=== PATIENT | female | born 1975 | race Caucasian/White ===

== ENCOUNTER 2023-08-18 00:48 | Inpatient (IN) | payer MEDICARE, MEDICAID, SELFPAY ==
[2023-08-18 01:00] VITALS: BP 163/116; PULSE 106; RESP 20; O2SAT 94
[2023-08-18 01:10] VITALS: BMI 27.3
--- NOTE | 2023-08-18 01:32 | PC.NURSE ---
Pt direct admit from [facility] where she presented to the ER with c/o abnormal vaginal discharge and vaginal soreness that she had noticed earlier in the day. She also c/o dysuria and increased urinary frequency. Pt states that she is to a private practice physician and her visit to the ER was completely useless. Pt presents to [facility] via EMS at approximately 0043 and is verbally aggressive w/staff. Pt taken to her room and dressed out. Admission assessment completed w/difficulty d/t pt not wanting to answer questions and believing the [facility] is after her. Pt is currently resting in bed.
[2023-08-18 06:00] VITALS: BP 176/101; PULSE 109; RESP 18; O2SAT 97
--- NOTE | 2023-08-18 07:17 | W.PM.NPUH&PS ---
Providers/Chief Complaint Admitting Physician: Celestine Abdi MD HPI [facility] History of Present Illness Elidia Jameson is a 47 year old female who presented to an outside hospital reporting some physical complaints. She discharged and returned shortly having reportedly missed the bus. When she came back and she was requesting food and having some other complaints. Things escalated and led to her receiving medication and being held by the determination of the physician there in collaboration with her guardian. She presents with a very confusing story and being a very resistant historian. She reported that she has been hospitalized 3 times before and that she has a bad reaction to Prozac. She denies current medication and reported that the problem that led her to the hospital was some and moved in with her and is controlling things. Some of her comments seem reasonable while others were quite paranoid. She reported she went to the outside hospital secondary to a vaginal infection. She reports that the reason for the vaginal infection was that people were coming in her house and putting something in her vagina. She reports that other than that concern there is no reason for her to be here and denied any psychiatric elements. She reported that she had been going to [facility] but the man who moved into her house and seem to take over made her start going to [facility]. She reports a history of being on Abilify and some other medications including Lexapro and Prozac. She reports that the medications did not help much and were not necessary. Attempts to gain an understanding of her previous hospitalizations with the problems have been were also difficult. At 1 point she became very resistant to the interview saying that it was hard for her to think and almost bursting into tears. She reports that she smokes about 6 to 7 cigarettes a day but that is because this man keeps all of her 90 and she came to get a pack of cigarettes at a time. She denies alcohol use and reports marijuana rarely. She denied cocaine methamphetamine or opiate use or any other illicit drug use. So she had no explanation for her drug screen that was positive for amphetamines as well as some other substances. She returned to the paranoid explanations for that. She denied any rehabs or drug and alcohol treatment but did report having a DUI in her 20s. She reports that most of this started back in 2014 when she cannot explain what was going on back then. She reports that she is so upset that her eyesight is starting to go. She reports that there are other people that live in her house and they are all terrible people. She reported that all she wanted when she came to the hospital was to get to a homeless snf which was never mentioned anywhere. She did not answer any more historical questions secondary to feeling overwhelmed. We discussed getting an contact with this guardian if we can get collateral information on her medications or past psychiatric treatment. Meds [facility] Home Medications Medication Instructions Recorded Confirmed Last Taken Type Unable to Assess 08/18/23 08/18/23 Unknown History Allergies Allergy/AdvReac Type Severity Reaction Status Date / Time No Known Allergies Allergy Verified 08/18/23 01:07 Mental Status Exam MSE Comments: This is an overweight versus obese white female in hospital scrubs with limited grooming or eye contact. She was lying in bed with psychomotor agitation. Notable scar on her right lower leg from the medial aspect of her ankle up several inches. Somewhat cooperative with exam but then uncooperative with exam and moderate distress. Speech was increased rate normal volume. Mood described as pretty upset, affect congruent, tearful and at times confused. Thought process linear. Thought content: Patient denied suicidal or homicidal ideation, there were no delusions reported but clear paranoia and persecutory delusions noted, she denied auditory or visual sedations but some concerns for perceptual disturbances exist. Attention and concentration were limited and memory was unreliable but none were formally tested. She is alert and oriented to person and place. Insight, judgment and impulse control are impaired. Vitals/I&O/Wt Last Vital Signs Pulse 109 H 08/18/23 06:00 Resp 18 08/18/23 06:00 BP 176/101 08/18/23 06:00 Pulse Ox 97 08/18/23 06:00 O2 Del Method Room Air 08/18/23 06:00 Weight last 48 hrs Weight 81.6 kg A&P Assessment and plan (1) Psychotic disorder: (2) Methamphetamine use disorder, severe: Plan This is a 47-year-old white female with some previous history of mental health treatment that is unclear with possible sexually transmitted disease noted at the outside hospital as well as paranoia and some confusion with limited ability to function as an accurate historian transferred to the hospital reportedly with a guardian supporting the transfer. 1. Continue current medications. We will identify past successful medications or consider new antipsychotic. 2. Continue every 15 minute checks for safety. 3. Encourage individual, group and any therapy. 4. Encourage sober living treatment after discharge at the highest level of care to which she is willing to commit. 5. Obtain collateral information including from the guardian regarding past treatment and possible current medications. Involuntary Hold Information 96 Hour Hold: 96 Hour Involuntary Admission: No Attestations [facility] Medical Necessity Statement*: Inpatient hospitalization is medically necessary and the clinically appropriate intervention at this time. We will monitor medications and make changes as indicated. She will be in the hospital for over 2 midnights. Likely length of stay 7 to 10 days. Coding Level of Care Code Acute Code for [facility] Fwd Diagnoses Psychotic disorder F29 Methamphetamine use disorder, severe F15.20
--- NOTE | 2023-08-18 13:34 | PC.NURSE ---
Patient has woken up. Patient tearful. Patient willing to go to dayroom to ear her lunch. Shower, drink, and services offered to patient. Will continue to closely monitor.
[2023-08-18 14:00] VITALS: BP 138/97; PULSE 108; RESP 14; TEMP 36.9; O2SAT 96
[2023-08-18 20:17] VITALS: BP 174/112; PULSE 104; RESP 18; TEMP 36.9; O2SAT 97
--- NOTE | 2023-08-19 05:01 | PC.NURSE ---
Pt sitting on edge of bed anxious and tearful stating she doesn't understand why she is here. When this nurse attempted to talk to patient she just covered herself up and conversation was halted. This nurse offered the patient medication for anxiety, however pt refused treatment. Behavior monitoring continues.
[2023-08-19 06:00] VITALS: BP 135/79; PULSE 87; RESP 16; TEMP 36.2; O2SAT 95
--- NOTE | 2023-08-19 07:49 | W.PM.NPUPNS ---
Subjective NPU Subjective: Patient presented today continuing to be a fairly poor historian and not giving much information that was useful. We discussed us trying to find out some collateral information from her guardian to figure out where things are or have been as far as medications. She brought up 1 medication which she had reported yesterday was horrible and causes her problems so her position as a historian is quite questionable. Mental Status Exam MSE Comments: This is an overweight versus obese white female in hospital scrubs with limited grooming or eye contact. She was lying in bed with psychomotor agitation. Notable scar on her right lower leg from the medial aspect of her ankle up several inches. Somewhat cooperative with exam but then uncooperative with exam and moderate distress. Speech was increased rate normal volume. Mood described as pretty upset, affect congruent, tearful and at times confused. Thought process linear. Thought content: Patient denied suicidal or homicidal ideation, there were no delusions reported but clear paranoia and persecutory delusions noted, she denied auditory or visual sedations but some concerns for perceptual disturbances exist. Attention and concentration were limited and memory was unreliable but none were formally tested. She is alert and oriented to person and place. Insight, judgment and impulse control are impaired. Vitals/I&O/Wt Last Vital Signs Temp 97.2 F L 08/19/23 06:00 Pulse 87 08/19/23 06:00 Resp 16 08/19/23 06:00 BP 135/79 08/19/23 06:00 Pulse Ox 95 08/19/23 06:00 O2 Del Method Room Air 08/19/23 06:00 Weight last 48 hrs Weight 78.925 kg Weight 78.925 kg Weight 81.6 kg A&P Assessment and plan (1) Psychotic disorder: (2) Methamphetamine use disorder, severe: Plan This is a 47-year-old white female with some previous history of mental health treatment that is unclear with possible sexually transmitted disease noted at the outside hospital as well as paranoia and some confusion with limited ability to function as an accurate historian transferred to the hospital reportedly with a guardian supporting the transfer. 1. Continue current medications. We will identify past successful medications or consider new antipsychotic. 2. Continue every 15 minute checks for safety. 3. Encourage individual, group and any therapy. 4. Encourage sober living treatment after discharge at the highest level of care to which she is willing to commit. 5. Obtain collateral information including from the guardian regarding past treatment and possible current medications. Involuntary Hold Information 96 Hour Hold: 96 Hour Involuntary Admission: No Attestations N[facility] Medical Necessity Statement*: Inpatient hospitalization is medically necessary and the clinically appropriate intervention at this time. We will monitor medications and make changes as indicated. Likely length of stay 7 to 10 days. Coding Level of Care Code Acute Code for [facility] Diagnoses Psychotic disorder F29 Methamphetamine use disorder, severe F15.20
[2023-08-19 14:00] VITALS: BP 133/81; PULSE 86; RESP 14; TEMP 36.8; O2SAT 94
[2023-08-19 20:26] VITALS: BP 158/96; PULSE 84; RESP 18; O2SAT 93
[2023-08-20 06:00] VITALS: BP 137/85; PULSE 98; RESP 16; O2SAT 95
--- NOTE | 2023-08-20 11:21 | P.NPUPN_ITS ---
Subjective NPU Subjective: Patient presented today reporting that she is feeling better but not functioning better per staff reports and direct observation. Today she was focused on the fact that the guardianship paperwork we have is illegal or not accurate and that she does not have a guardian. She would not discuss other issues and really focused on that reality. We discussed that we had the documentation and it appears consistent with how the paperwork should look. She demanded that we had reviewed and suggested that we were holding her illegally because it is not valid. Mental Status Exam MSE Comments: This is an overweight versus obese white female in hospital scrubs with limited grooming or eye contact. She was lying in bed with psychomotor agitation. Notable scar on her right lower leg from the medial aspect of her ankle up several inches. Somewhat cooperative with exam but then uncooperative with exam and moderate distress. Speech was increased rate normal volume. Mood described as frustrated, affect congruent. Thought process linear. Thought content: Patient denied suicidal or homicidal ideation, there were no delusions reported but clear paranoia and persecutory delusions noted, she denied auditory or visual sedations but some concerns for perceptual disturbances exist. Attention and concentration were limited and memory was unreliable but none were formally tested. She is alert and oriented to person and place. Insight, judgment and impulse control are impaired. Vitals/I&O/Wt Last Vital Signs Temp 98.2 F 08/19/23 14:00 Pulse 98 08/20/23 06:00 Resp 16 08/20/23 06:00 BP 137/85 08/20/23 06:00 Pulse Ox 95 08/20/23 06:00 O2 Del Method Room Air 08/19/23 06:00 Weight last 48 hrs Weight 78.925 kg Weight 78.925 kg A&P Assessment and plan (1) Psychotic disorder: (2) Methamphetamine use disorder, severe: Plan This is a 47-year-old white female with some previous history of mental health treatment that is unclear with possible sexually transmitted disease noted at the outside hospital as well as paranoia and some confusion with limited ability to function as an accurate historian transferred to the hospital reportedly with a guardian supporting the transfer. 1. Continue current medications. We will identify past successful medications or consider new antipsychotic. 2. Continue every 15 minute checks for safety. 3. Encourage individual, group and any therapy. 4. Encourage sober living treatment after discharge at the highest level of car e to which she is willing to commit. 5. Obtain collateral information including from the guardian regarding past treatment and possible current medications. Involuntary Hold Information 96 Hour Hold: 96 Hour Involuntary Admission: No Attestations [facility] Medical Necessity Statement*: Inpatient hospitalization is medically necessary and the clinically appropriate intervention at this time. We will monitor medications and make changes as indicated. Likely length of stay 7 to 10 days. Coding Level of Care Code Acute Code for [facility] Diagnoses Psychotic disorder F29 Methamphetamine use disorder, severe F15.20
[2023-08-20 14:00] VITALS: BP 137/88; PULSE 92; RESP 16; TEMP 36.6; O2SAT 96
[2023-08-20 20:19] VITALS: BP 121/77; PULSE 90; RESP 15; O2SAT 96
[2023-08-21 06:00] VITALS: RESP 16
--- NOTE | 2023-08-21 09:28 | PC.NURSE ---
Patient lying in bed upon assessment. She states she didn't sleep well and believes she has a vaginal infection. She gave very short, clipped answers to all assessment questions. She denies si/hi and avh. Patient stated, I'd just like to go home.
[2023-08-21 14:00] VITALS: BP 143/87; PULSE 89; RESP 14; TEMP 37.1; O2SAT 95
--- NOTE | 2023-08-21 17:30 | P.NPUPN_ITS ---
Subjective NPU Subjective: Patient presented today continuing to be a fairly hostile interviewee. She continues to be resistant to be validity of her guardianship but we gave her the number to her guardian and assured her that we verified the paper and the process. We discussed continuing to request previous mental health records to help us know what direction we need to go from the standpoint of a mood stabilizer/antipsychotic. She reported that she is not open to taking medication but we discussed that the guardian has given permission for her to receive medication. Mental Status Exam MSE Comments: This is an overweight versus obese white female in hospital scrubs with limited grooming or eye contact. She was lying in bed with psychomotor agitation. Notable scar on her right lower leg from the medial aspect of her ankle up several inches. Somewhat cooperative with exam but then uncooperative with exam and moderate distress. Speech was increased rate normal volume. Mood described as frustrated, affect congruent. Thought process linear. Thought content: Patient denied suicidal or homicidal ideation, there were no delusions reported but clear paranoia and persecutory delusions noted, she denied auditory or visual sedations but some concerns for perceptual disturbances exist. Attention and concentration were limited and memory was unreliable but none were formally tested. She is alert and oriented to person and place. Insight, judgment and impulse control are impaired. Vitals/I&O/Wt Last Vital Signs Temp 98.8 F 08/21/23 14:00 Pulse 89 08/21/23 14:00 Resp 14 08/21/23 14:00 BP 143/87 08/21/23 14:00 Pulse Ox 95 08/21/23 14:00 O2 Del Method Room Air 08/20/23 20:19 A&P Assessment and plan (1) Psychotic disorder: (2) Methamphetamine use disorder, severe: Plan This is a 47-year-old white female with some previous history of mental health treatment that is unclear with possible sexually transmitted disease noted at the outside hospital as well as paranoia and some confusion with limited ability to function as an accurate historian transferred to the hospital reportedly with a guardian supporting the transfer. 1. Continue current medications. We will identify past successful medications or consider new antipsychotic. 2. Continue every 15 minute checks for safety. 3. Encourage individual, group and any therapy. 4. Encourage sober living treatment after discharge at the highest level of care to which she is willing to commit. 5. Obtain collateral information including from the guardian regarding past treatment and possible current medications. Involuntary Hold Information 96 Hour Hold: 96 Hour Involuntary Admission: No Attestations NPU Medical Necessity Statement*: Inpatient hospitalization is medically necessary and the clinically appropriate intervention at this time. We will monitor medications and make changes as indicated. Likely length of stay 7 to 10 days. Coding Level of Care Code Acute Code for [facility] Fwd Diagnoses Psychotic disorder F29 Methamphetamine use disorder, severe F15.20
[2023-08-21 20:43] VITALS: RESP 15
[2023-08-22 06:00] VITALS: BP 135/85; PULSE 95; RESP 18; O2SAT 95
[2023-08-22 14:00] VITALS: BP 131/86; PULSE 86; RESP 13; TEMP 36.8; O2SAT 97
[2023-08-22] MEDS: paliperidone ER 6 mg Tablet PO (15:36)
--- NOTE | 2023-08-22 15:47 | PC.NURSE ---
Patient refused Invega this morning. Patient was presented with the information that she would have to take the medication or receive injections. Patient upset, wanting to talk to doctor first. Staff and security gathered to give patient IM injections. Patient crying, not wanting shots. Patient agreed to take oral invega instead of shots.
--- NOTE | 2023-08-22 16:25 | W.PM.NPUPNS ---
Subjective NPU Subjective: Patient presented today reporting that she is doing okay. She continued to struggle with the idea that she had a guardian and we discussed starting medication with guardian. She was resistant and eventually did take the medication however afterwards went and pulled the fire alarm. She ultimately ended up getting as needed medication before to calm down. Mental Status Exam MSE Comments: This is an overweight versus obese white female in hospital scrubs with limited grooming or eye contact. She was lying in bed with psychomotor agitation. Notable scar on her right lower leg from the medial aspect of her ankle up several inches. Somewhat cooperative with exam but then uncooperative with exam and moderate to extreme distress. Speech was increased rate normal volume. Mood described as frustrated, affect congruent. Thought process linear. Thought content: Patient denied suicidal or homicidal ideation, there were no delusions reported but clear paranoia and persecutory delusions noted, she denied auditory or visual sedations but some concerns for perceptual disturbances exist. Attention and concentration were limited and memory was unreliable but none were formally tested. She is alert and oriented to person and place. Insight, judgment and impulse control are impaired. Vitals/I&O/Wt Last Vital Signs Temp 98.8 F 08/21/23 14:00 Pulse 95 08/22/23 06:00 Resp 18 08/22/23 06:00 BP 135/85 08/22/23 06:00 Pulse Ox 95 08/22/23 06:00 O2 Del Method Room Air 08/22/23 06:00 A&P Assessment and plan (1) Psychotic disorder: (2) Methamphetamine use disorder, severe: Plan This is a 47-year-old white female with some previous history of mental health treatment that is unclear with possible sexually transmitted disease noted at the outside hospital as well as paranoia and some confusion with limited ability to function as an accurate historian transferred to the hospital reportedly with a guardian supporting the transfer. 1. Continue current medications. Start Invega 6 mg p.o. daily. Patient on forced medication protocol with agreement by guardian. 2. Continue every 15 minute checks for safety. 3. Encourage individual, group and any therapy. 4. Encourage sober living treatment after discharge at the highest level of care to which she is willing to commit. 5. Obtain collateral information including from the guardian regarding past treatment and possible current medications. Involuntary Hold Information 96 Hour Hold: 96 Hour Involuntary Admission: No Attestations NPU Medical Necessity Statement*: Inpatient hospitalization is medically necessary and the clinically appropriate intervention at this time. We will monitor medications and make changes as indicated. Likely length of stay 7 to 10 days. Coding Level of Care Code Acute Code for [facility] Fwd Diagnoses Psychotic disorder F29 Methamphetamine use disorder, severe F15.20
[2023-08-22] MEDS: haloperidol inj 5 mg/mL INJ 1 mL IM (16:29)
[2023-08-22] MEDS: diphenhydrAMINE 50 mg/mL SDV 1mL IM (16:29)
[2023-08-22] MEDS: LORazepam 2 mg/mL INJ 1 mL IM (16:29)
--- NOTE | 2023-08-22 16:29 | PC.NURSE ---
Patient pulled the cover off of the fire alarm for the second time. When confronted, patient stated that she just looked at it and the cover fell off. Patient continued to have behavioral issues. After speaking with Dr. Abdi, ordered to give IM B52. Administered simultaneously by two nurses in the right and left ventrogluteal areas. Security present. Patient tearful after administration. Patient now resting on side.
[2023-08-22 20:35] VITALS: RESP 16
--- NOTE | 2023-08-22 20:47 | PC.NURSE ---
RESTING IN BED SNORING. AROUSES TO VOICE. DENIES PAIN, SI/HI AND AVH AT THIS TIME. PT THEN STATED JUST LET ME SLEEP. SUPPORT VOICED. PT ROLLED OVER AND WENT BACK TO SLEEP AND WAS SNORING LOUDLY.
[2023-08-23 06:00] VITALS: RESP 18
[2023-08-23] MEDS: paliperidone ER 6 mg Tablet PO (13:08)
[2023-08-23 14:00] VITALS: BP 126/77; PULSE 95; RESP 20; TEMP 37; O2SAT 96
--- NOTE | 2023-08-23 17:59 | P.NPUPN_ITS ---
Subjective NPU Subjective: Patient presented today reporting that she is doing okay. She did willingly take her medication this morning We discussed working with her guardian to figure out where she will go after discharge. We discussed the possibility of a long-acting injectable. She denied any side effects of the medication at this point. Mental Status Exam MSE Comments: This is an overweight versus obese white female in hospital scrubs with limited grooming or eye contact. She was lying in bed with less psychomotor agitation. Notable scar on her right lower leg from the medial aspect of her ankle up luzmaria ral inches. Slightly more cooperative with exam in mild distress. Speech was increased rate normal volume. Mood described as okay , affect congruent. Thought process linear. Thought content: Patient denied suicidal or homicidal ideation, there were no delusions reported but clear paranoia and persecutory delusions noted, she denied auditory or visual hallucinations but some concerns for perceptual disturbances exist. Attention and concentration were limited and memory was unreliable but none were formally tested. She is alert and oriented to person and place. Insight and judgment improving and impulse control is impaired. Vitals/I&O/Wt Last Vital Signs Temp 98.2 F 08/22/23 14:00 Pulse 86 08/22/23 14:00 Resp 18 08/23/23 06:00 BP 131/86 08/22/23 14:00 Pulse Ox 97 08/22/23 14:00 O2 Del Method Room Air 08/22/23 06:00 A&P Assessment and plan (1) Psychotic disorder: (2) Methamphetamine use disorder, severe: Plan This is a 47-year-old white female with some previous history of mental health treatment that is unclear with possible sexually transmitted disease noted at the outside hospital as well as paranoia and some confusion with limited ability to function as an accurate historian transferred to the hospital reportedly with a guardian supporting the transfer. 1. Continue current medications. Started Invega 6 mg p.o. daily. Patient on forced medication protocol with agreement by guardian. We will consider long- acting injectable. 2. Continue every 15 minute checks for safety. 3. Encourage individual, group and any therapy. 4. Encourage sober living treatment after discharge at the highest level of care to which she is willing to commit. 5. Obtain collateral information including from the guardian regarding past treatment and possible current medications. Involuntary Hold Information 96 Hour Hold: 96 Hour Involuntary Admission: No Attestations NPU Medical Necessity Statement*: Inpatient hospitalization is medically necessary and the clinically appropriate intervention at this time. We will monitor medications and make changes as indicated. Likely length of stay 6-9 days. Coding Level of Care Code Acute Code for [facility] Diagnoses Psychotic disorder F29 Methamphetamine use disorder, severe F15.20
--- NOTE | 2023-08-23 20:19 | PC.NURSE ---
IN BED RESTING AROUSES TO VOICE. PT DENIES SI/HI AND AVH AT THIS TIME. RATES ANXIETY 5/10 AND DEPRESSION 0/10. DENIES PAIN. PT IS NOTED TO HAVE A FLAT AFFECT AND WITHDRAWS TO ROOM. PT COMPLETED ASSESSMENT AND WENT BACK TO RESTING. PT IS OBSERVED HAVING POOR HYGIENE AND IS DISHOVELED UPON ASSESSMENT. ALL QUESTIONS ANSWERED AND SUPPORT VOICED.
[2023-08-23 20:21] VITALS: BP 111/70; PULSE 90; RESP 18; O2SAT 96
[2023-08-24 06:00] VITALS: RESP 16
--- NOTE | 2023-08-24 06:22 | PC.NURSE ---
PT HAS RESTED WELL THROUGHOUT THE SHIFT. PT HAS SLEPT APPROXIMATELY 11 HOURS.
[2023-08-24] MEDS: paliperidone ER 6 mg Tablet PO (09:16)
--- NOTE | 2023-08-24 10:13 | W.PM.NPUPNS ---
Subjective NPU Subjective: Patient presented today reporting that she is doing all right. She once again took her medication without any issues this morning and identified that. We discussed conversations with her guardian and if she understood anything about their plan for placement. She reported not being clear about what they wanted to do but was not reporting frustration about guardianship as she had the past couple of days. She reported that she was eating and sleeping okay. Mental Status Exam MSE Comments: This is an overweight versus obese white female in hospital scrubs with limited grooming or eye contact. She was lying in bed with less psychomotor agitation. Notable scar on her right lower leg from the medial aspect of her ankle up several inches. Slightly more cooperative with exam in mild distress. Speech was increased rate normal volume. Mood described as okay , affect congruent. Thought process linear. Thought content: Patient denied suicidal or homicidal ideation, there were no delusions reported but clear paranoia and persecutory delusions noted, she denied auditory or visual hallucinations but some concerns for perceptual disturbances exist. Attention and concentration were limited and memory was unreliable but none were formally tested. She is alert and oriented to person and place. Insight and judgment improving and impulse control is impaired. Vitals/I&O/Wt Last Vital Signs Temp 98.6 F 08/23/23 14:00 Pulse 90 08/23/23 20:21 Resp 16 08/24/23 06:00 BP 111/70 08/23/23 20:21 Pulse Ox 96 08/23/23 20:21 O2 Del Method Room Air 08/23/23 20:21 A&P Assessment and plan (1) Psychotic disorder: (2) Methamphetamine use disorder, severe: Plan This is a 47-year-old white female with some previous history of mental health treatment that is unclear with possible sexually transmitted disease noted at the outside hospital as well as paranoia and some confusion with limited ability to function as an accurate historian transferred to the hospital reportedly with a guardian supporting the transfer. 1. Continue current medications. Started Invega 6 mg p.o. daily. Patient on forced medication protocol with agreement by guardian. We will consider long-acting injectable. 2. Continue every 15 minute checks for safety. 3. Encourage individual, group and any therapy. 4. Encourage sober living treatment after discharge at the highest level of care to which she is willing to commit. 5. Obtain collateral information including from the guardian regarding past treatment and possible current medications. Involuntary Hold Information 96 Hour Hold: 96 Hour Involuntary Admission: No Attestations NPU Medical Necessity Statement*: Inpatient hospitalization is medically necessary and the clinically appropriate intervention at this time. We will monitor medications and make changes as indicated. Likely length of stay 5-8 days. Coding Level of Care Code Acute Code for g Fwd Diagnoses Psychotic disorder F29 Methamphetamine use disorder, severe F15.20
[2023-08-24 14:00] VITALS: BP 164/81; PULSE 66; RESP 16; TEMP 36.5; O2SAT 95
[2023-08-24] MEDS: nicotine 2 mg Gum BUCCAL (14:54)
[2023-08-24 20:59] VITALS: BP 95/60; PULSE 68; RESP 16; TEMP 36.7; O2SAT 96
[2023-08-25 06:00] VITALS: BP 116/50; PULSE 62; RESP 18; TEMP 36.7; O2SAT 95
--- NOTE | 2023-08-25 08:09 | W.PM.NPUPNS ---
Subjective NPU Subjective: Patient presented today reporting that she is doing fine. She continues to be more cooperative and collaborative. Wondering today if we do anything more about where she might be going. She continues to take her medication and denied any problems with the medication. She is being more proactive in her ADLs and showering regularly now. She has not expressed any of the previous vitreal about having a guardian. Mental Status Exam MSE Comments: This is an overweight versus obese white female in hospital scrubs with improving grooming or eye contact. She was lying in bed with less psychomotor agitation. Notable scar on her right lower leg from the medial aspect of her ankle up several inches. Slightly more cooperative with exam in mild distress. Speech was increased rate normal volume. Mood described as okay , affect congruent. Thought process linear. Thought content: Patient denied suicidal or homicidal ideation, there were no delusions reported but clear paranoia and persecutory delusions noted, she denied auditory or visual hallucinations but some concerns for perceptual disturbances exist. Attention and concentration were limited and memory was unreliable but none were formally tested. She is alert and oriented to person and place. Insight and judgment improving and impulse control is impaired. Vitals/I&O/Wt Last Vital Signs Temp 98.1 F 08/25/23 06:00 Pulse 62 08/25/23 06:00 Resp 18 08/25/23 06:00 BP 116/50 08/25/23 06:00 Pulse Ox 95 08/25/23 06:00 O2 Del Method Room Air 08/25/23 06:00 A&P Assessment and plan (1) Psychotic disorder: (2) Methamphetamine use disorder, severe: Plan This is a 47-year-old white female with some previous history of mental health treatment that is unclear with possible sexually transmitted disease noted at the outside hospital as well as paranoia and some confusion with limited ability to function as an accurate historian transferred to the hospital reportedly with a guardian supporting the transfer. 1. Continue current medications. Started Invega 6 mg p.o. daily. Patient on forced medication protocol with agreement by guardian but has been taking medication without difficulty past few days. We will consider long-acting injectable. 2. Continue every 15 minute checks for safety. 3. Encourage individual, group and any therapy. 4. Encourage sober living treatment after discharge at the highest level of care to which she is willing to commit. 5. Obtain collateral information including from the guardian regarding past treatment and possible current medications. Involuntary Hold Information 96 Hour Hold: 96 Hour Involuntary Admission: No Attestations NPU Medical Necessity Statement*: Inpatient hospitalization is medically necessary and the clinically appropriate intervention at this time. We will monitor medications and make changes as indicated. Likely length of stay 5-8 days. Coding Level of Care Code Acute Code for [facility] Fwd Diagnoses Psychotic disorder F29 Methamphetamine use disorder, severe F15.20
[2023-08-25] MEDS: paliperidone ER 6 mg Tablet PO (08:26)
[2023-08-25 14:00] VITALS: BP 125/85; PULSE 118; RESP 18; TEMP 37.1; O2SAT 97
[2023-08-25 22:00] VITALS: BP 128/86; PULSE 93; RESP 17; TEMP 37; O2SAT 97
[2023-08-26 06:00] VITALS: BP 146/81; PULSE 99; RESP 16; O2SAT 95
[2023-08-26] MEDS: paliperidone ER 6 mg Tablet PO (08:16)
[2023-08-26] MEDS: nicotine 21 mg Patch 1 PATCH TRANSDERMA (08:48)
--- NOTE | 2023-08-26 13:04 | P.NPUPN_ITS ---
Subjective NPU Subjective: Patient presented today reporting that she is feeling fine and wanting to leave. She discussed being willing to go to a halfway if necessary but we discussed her guardian is not interested in her being in a halfway situation and is working on different options. She is taking the medication without resistance at this point and denied any side effects of the medication. Mental Status Exam MSE Comments: This is an overweight versus obese white female in hospital scrubs with improving grooming or eye contact. She was lying in bed with less psychomotor agitation. Notable scar on her right lower leg from the medial aspect of her ankle up several inches. Slightly more cooperative with exam in mild distress. Speech was increased rate normal volume. Mood described as okay , affect con gruent. Thought process linear. Thought content: Patient denied suicidal or homicidal ideation, there were no delusions reported but clear paranoia and persecutory delusions noted, she denied auditory or visual hallucinations but some concerns for perceptual disturbances exist. Attention and concentration were limited and memory was unreliable but none were formally tested. She is alert and oriented to person and place. Insight and judgment improving and impulse control is impaired. Vitals/I&O/Wt Last Vital Signs Temp 98.6 F 08/25/23 22:00 Pulse 99 08/26/23 06:00 Resp 16 08/26/23 06:00 BP 146/81 08/26/23 06:00 Pulse Ox 95 08/26/23 06:00 O2 Del Method Room Air 08/26/23 06:00 Weight last 48 hrs Weight 83.121 kg A&P Assessment and plan (1) Psychotic disorder: (2) Methamphetamine use disorder, severe: Plan This is a 47-year-old white female with some previous history of mental health treatment that is unclear with possible sexually transmitted disease noted at the outside hospital as well as paranoia and some confusion with limited ability to function as an accurate historian transferred to the hospital reportedly with a guardian supporting the transfer. 1. Continue current medications. Started Invega 6 mg p.o. daily. Patient on forced medication protocol with agreement by guardian but has been taking medication without difficulty past few days. We will consider long-acting injectable. 2. Continue every 15 minute checks for safety. 3. Encourage individual, group and any therapy. 4. Encourage sober living treatment after discharge at the highest level of care to which she is willing to commit. 5. Obtain collateral information including from the guardian regarding past treatment and possible current medications. Involuntary Hold Information 96 Hour Hold: 96 Hour Involuntary Admission: No Attestations NPU Medical Necessity Statement*: Inpatient hospitalization is medically necessary and the clinically appropriate intervention at this time. We will monitor medications and make changes as indicated. Likely length of stay 4-7 days. Coding Level of Care Code Acute Code for [facility] Fwd Diagnoses Psychotic disorder F29 Methamphetamine use disorder, severe F15.20
[2023-08-26 14:00] VITALS: BP 103/67; PULSE 83; RESP 20; TEMP 37.2; O2SAT 93
[2023-08-26 19:44] VITALS: BP 132/82; PULSE 99; RESP 16; O2SAT 96
[2023-08-27 03:48] LABS: Specific Gravity, Urine 1.025 (1.005-1.030); Urine Appearance Hazy (CLEAR); Urine Color Yellow (Yellow); pH Urine 5 (5-7)
[2023-08-27 03:49] LABS: Add Urine Culture? Yes; Add Urine Microscopic? YES; Bacteria Urine TRACE /hpf; Bilirubin Urine Neg (Negative); Blood Urine 2+ (Negative); Glucose Urine UA Norm (Normal); Ketones Urine Negative (Negative); Leukocyte Esterase Urine 2+ (Negative); Nitrate Urine Negative (Negative); Protein Urine 1+ (Negative); RBC Urine 0-4 /hpf (0-2); Squamous Epithelial Cell Urine 0-4 /hpf (0-5); Urobilinogen Urine Norm (Negative); WBC Urine >100 /hpf (0-5)
[2023-08-27 06:00] VITALS: RESP 16
--- NOTE | 2023-08-27 07:38 | P.NPUPN_ITS ---
Subjective NPU Subjective: Patient presents today reporting that she is fine and continuing to be quite focused on different options for discharge. She is thrown out the idea of different residential facilities including homeless shelters. We discussed that her guardian is not wanting her to be in some kind of uncontrolled setting like that and so they are exploring more controlled residential options. Mental Status Exam MSE Comments: This is an overweight versus obese white female in hospital scrubs with improving grooming or eye contact. She was lying in bed with less psychomotor agitation. Notable scar on her right lower leg from the medial aspect of her ankle up several inches. Slightly more cooperative with exam in mild distress. Speech was increased rate normal volume. Mood described as okay , affect congruent. Thought process linear. Thought content: Patient denied suicidal or homicidal ideation, there were no delusions reported but clear paranoia and persecutory delusions noted, she denied auditory or visual hallucinations but some concerns for perceptual disturbances exist. Attention and concentration were limited and memory was unreliable but none were formally tested. She is alert and oriented to person and place. Insight and judgment improving and impulse control is impaired. Vitals/I&O/Wt Last Vital Signs Temp 98.9 F 08/26/23 14:00 Pulse 99 08/26/23 19:44 Resp 16 08/27/23 06:00 BP 132/82 08/26/23 19:44 Pulse Ox 96 08/26/23 19:44 O2 Del Method Room Air 08/26/23 19:44 Weight last 48 hrs Weight 83.121 kg A&P Assessment and plan (1) Acute cystitis: (2) Methamphetamine use disorder, severe: (3) Psychotic disorder: Plan This is a 47-year-old white female with some previous history of mental health treatment that is unclear with possible sexually transmitted disease noted at the outside hospital as well as paranoia and some confusion with limited ability to function as an accurate historian transferred to the hospital reportedly with a guardian supporting the transfer. 1. Continue current medications. Started Invega 6 mg p.o. daily. Patient on forced medication protocol with agreement by guardian but has been taking medication without difficulty past few days. We will consider long-acting injectable. 2. Continue every 15 minute checks for safety. 3. Encourage individual, group and any therapy. 4. Encourage sober living treatment after discharge at the highest level of care to which she is willing to commit. 5. Obtain collateral information including from the guardian regarding past treatment and possible current medications. 6. Appreciate hospitalist consult with [employer] complaints. 7. Signing level 2. Involuntary Hold Information 96 Hour Hold: 96 Hour Involuntary Admission: No Attestations NPU Medical Necessity Statement*: Inpatient hospitalization is medically necessary and the clinically appropriate intervention at this time. We will monitor medications and make changes as indicated. Likely length of stay 4-7 days. Coding Level of Care Code Acute Code for g Fwd Diagnoses Acute cystitis N30.00 Methamphetamine use disorder, severe F15.20 Psychotic disorder F29
[2023-08-27] MEDS: paliperidone ER 6 mg Tablet PO (08:02)
[2023-08-27 14:00] VITALS: BP 131/82; PULSE 106; RESP 18; TEMP 36.6; O2SAT 96
[2023-08-27 20:26] VITALS: BP 123/72; PULSE 103; RESP 16; TEMP 37.1; O2SAT 97
--- NOTE | 2023-08-27 22:27 | PM.CONSULT ---
Providers/Reason For Consult Consulting Physician/Specialty*: Hospitalist service Reason for Consult*: UTI Requesting Physician: Dr. Feliciano Nixon Attending Physician: Celestine Abdi MD History of Present Illness History of Present Illness Elidia Jameson is a 47 yo woman w/ paranoia and severe methamphetamine use d/o, who was admitted to the Neuropsych unit (NPU) on 08/18/2023 for her psychiatric symptoms. The hospital service was consulted for medical management of her genitourinary complaints. The patient states that she has been having intermittent, malodorous, greenish discharge for the last 3 weeks that increased in the last 1 to 2 weeks. She is unsure whether her discharge is vaginal or urinary. She voiced her symptoms, who obtained a UA concerning for UTI. In addition to dysuria, she complains of cloudy urine. She denies hematuria, increased urinary urgency and frequency, fever, chills, abdominal pain, nausea, vomiting, diarrhea, dizziness, lightheadedness, constipation, melena, hematochezia. She blurry vision, but attributes it to not having her glasses or contacts. She also endorses nasal congestion, which she attributes to allergies. She endorses that she is sexually active, and states that she last had a sexual encounter approximately 2 months ago, and she requests STI testing. Review of Systems Const: Reports: fatigue; Denies: fever(s) or chills Eyes: Reports: change in vision and blurry vision ENMT: Reports: ear or mastoid pain and nasal congestion; Denies: nasal discharge Card: Reports: chest pain and palpitations Resp: Denies: dyspnea, productive cough or wheezing GI: Denies: abdominal pain, nausea, vomiting, diarrhea, constipation or melena : Reports: vaginal discharge Musc: Reports: other (No myalgia); Denies: joint pain Neuro: Reports: other (No LOC); Denies: headache(s) or dizziness Psych: Denies: suicidal ideation or homicidal ideation Endo: Denies: cold intolerance or heat intolerance Caleb/Lymph: Denies: easy bruising or easy bleeding All/Imm: Reports: other (No known allergies) Medications/Allergies Home Medications Medication Instructions Recorded Confirmed Last Taken Type Unable to Assess 08/18/23 08/18/23 Unknown History Allergies Allergy/AdvReac Type Severity Reaction Status Date / Time No Known Allergies Allergy Verified 08/18/23 01:07 Current Medications Generic Name Dose Route Start Last Admin Trade Name Freq PRN Reason Stop Dose Admin Diphenhydramine HCl 50 mg 08/18/23 01:00 08/22/23 16:29 Diphenhydramine 50 Mg/Ml Sdv 1ml IM 50 mg Q4H PRN Administration Severe Aggression Haloperidol Lactate 5 mg 08/18/23 01:00 08/22/23 16:29 Haloperidol Inj 5 Mg/Ml Inj 1 Ml IM 5 mg Q4H PRN Administration Severe Aggression Lorazepam 2 mg 08/18/23 01:00 08/22/23 16:29 Lorazepam 2 Mg/Ml Inj 1 Ml IM 2 mg Q4H PRN Administration Severe Aggression Nicotine 1 patch 08/18/23 01:00 08/26/23 08:48 Nicotine 21 Mg Patch TRANSDERMA 1 patch DAILY PRN Administration NICOTINE WITHDRAWAL Nicotine Polacrilex 2 mg 08/18/23 01:00 08/24/23 14:54 Nicotine 2 Mg Gum BUCCAL 2 mg Q2H PRN Administration NICOTINE WITHDRAWAL Paliperidone 6 mg 08/22/23 11:23 08/27/23 08:02 Paliperidone Er 6 Mg Tablet PO 6 mg DAILY JOSE G Administration PFSH Acute PFSH: Surgical History (Updated 08/28/23 @ 07:09 by Kathleen Warner MD) H/O shoulder surgery Right shoulder Fracture of right lower leg s/p surgery w/ hardware in place. Family History (Updated 08/28/23 @ 07:09 by Kathleen Warner MD) Mother Breast cancer Vitals/I&O/Wt Last Vital Signs Temp 98.8 F 08/27/23 20:26 Pulse 103 H 08/27/23 20:26 Resp 16 08/27/23 20:26 BP 123/72 08/27/23 20:26 Pulse Ox 97 08/27/23 20:26 O2 Del Method Room Air 08/26/23 19:44 Weight last 48 hrs Weight 83.121 kg Physical Exam Const: GENERAL APPEARANCE: cooperative and comfortable; not in distress and not combative ORIENTATION/CONSCIOUSNESS: Yes awake, Yes oriented to person, Yes oriented to place and Yes oriented to time HENMT: COMMON NORMALS: normocephalic, atraumatic, external ears normal and Normal external nose present HEAD & SCALP: normocephalic and atraumatic NOSE: Normal external nose present EXTERNAL EAR: Yes external ears normal MOUTH: Normal oral and palatal mucosa present THROAT: posterior oropharynx normal Eye: COMMON NORMALS: Equal, round and reactive pupils present and conjunctivae normal CONJUNCTIVA: Yes conjunctivae normal PUPIL: Yes Equal, round and reactive pupils present EOM: No EOM abnormal Neck/C-Spine: COMMON NORMALS: Thyroid normal GENERAL: Yes normal visual inspection and Yes trachea midline THYROID: Thyroid normal CAROTIDS: No bruit Lymph: LYMPHATIC: No lymphadenopathy Resp: COMMON NORMALS: clear to auscultation bilaterally AUSCULTATION: clear to auscultation bilaterally, no crackles, no rales, no rhonchi and no wheezes Cardio: COMMON NORMALS: regular rate, regular rhythm, S1 normal heart sound present and S2 normal heart sound present RATE: regular rate RHYTHM: regular rhythm HEART SOUNDS: S1 normal heart sound present, S2 normal heart sound present, no click, no gallops, no murmurs and no rubs BRUITS: carotid bruit PERIPHERAL PULSES: radial pulses present and dorsalis pedis present GI: COMMON NORMALS: Soft to palpation and No hepatosplenomegaly present PALPATION: Yes Soft to palpation, No Tenderness to palpation present (GI), No Guarding due to palpation present (GI), No Rigid due to palpation and Yes No hepatosplenomegaly present Extremity: GENERAL: No clubbing, No cyanosis and No edema Neuro: SENSORIUM/ORIENTATION: Yes oriented to person, Yes oriented to place and Yes oriented to time CRANIAL NERVES: Yes CN normal except as noted SPEECH: speech normal SENSORY EXAM: No sensory level loss detected MOTOR EXAM: 5/5 motor strength present throughout and Normal motor muscle tone present throughout Psych: COMMON NORMALS: speech normal APPEARANCE: Yes grossly normal and Yes unkempt ATTITUDE: Yes calm and Yes engaged ACTIVITY/MOTOR BEHAVIOR: Yes appropriate eye contact SPEECH: Yes normal speech MOOD & AFFECT: Yes euthymic mood Skin: COMMON NORMALS: no rashes or lesions noted GENERAL SKIN EXAM: no rashes or lesions noted A&P Assessment and plan (1) Acute cystitis: (2) Methamphetamine use disorder, severe: (3) Psychotic disorder: Plan Elidia Jameson is a 47 yo woman w/ paranoia and severe methamphetamine use d/o, who was admitted to the Neuropsych unit (NPU) on 08/18/2023 for her psychiatric symptoms. The hospital service was consulted for medical management of her genitourinary complaints and lab concerning for a UTI. Patient is also requesting STI testing. #Acute cystitis vs Vaginitis: - F/u UCx. Start Empiric Cipro BID. - F/u Gonorrhea/chlamydia, Trichomonas, HIV, Syphilis, HSV testing, HSV 1&2 TMA. #Psychosis #Severe Methamphetamine use d/o -Management per Psychiatrist Thank you for this consult. We will continue to follow. Please call or page w/ any questions. Consult Attestations Medical Necessity Statement: I anticipate the patient's care to remain greater thatn 2 midnights. Coding Level of Care Code 04209 Diagnoses Acute cystitis N30.00 Methamphetamine use disorder, severe F15.20 Psychotic disorder F29 Time Spent (min) 61 Comment time spent on chart reveiw/patient interview/exam, lab review, plan formulation.
[2023-08-28 06:00] VITALS: BP 136/85; PULSE 99; RESP 16; O2SAT 96
[2023-08-28] MEDS: ciprofloxacin 500 mg Tablet PO ×2 (08:34→20:23)
[2023-08-28] MEDS: paliperidone ER 6 mg Tablet PO (08:34)
[2023-08-28 11:56] LABS: HIV 1 & 2 Antibody Non-Reactive (Non-Reactiv); HIV 1 & 2 Antigen Non-Reactive (Non-Reactiv)
[2023-08-28 12:03] LABS: Rapid Plasma Reagin Syphilis Nonreactive (Nonreactive)
[2023-08-28 14:00] VITALS: BP 102/66; PULSE 89; RESP 16; TEMP 36.8; O2SAT 97
[2023-08-28] MEDS: nicotine 2 mg Gum BUCCAL (16:55)
--- NOTE | 2023-08-28 18:10 | W.PM.NPUPNS ---
Subjective NPU Subjective: Patient presented today reporting that things were going fine. We discussed her continued work with the social work team on different residential options. She had her hospitalist consult and we discussed that they are looking at possibilities for her symptoms. She denied any side effects from her current medication. We discussed the likely plan for long-acting injectable which she seemed ambivalent towards. Mental Status Exam MSE Comments: This is an overweight versus obese white female in hospital scrubs with improving grooming or eye contact. She was lying in bed with less psychomotor agitation. Notable scar on her right lower leg from the medial aspect of her ankle up several inches. Slightly more cooperative with exam in mild distress. Speech was increased rate normal volume. Mood described as okay , affect congruent. Thought process linear. Thought content: Patient denied suicidal or homicidal ideation, there were no delusions reported but clear paranoia and persecutory delusions noted, she denied auditory or visual hallucinations but some concerns for perceptual disturbances exist. Attention and concentration were limited and memory was unreliable but none were formally tested. She is alert and oriented to person and place. Insight and judgment improving and impulse control is impaired. Vitals/I&O/Wt Last Vital Signs Temp 97.5 F L 08/28/23 20:10 Pulse 104 H 08/28/23 20:10 Resp 16 08/28/23 20:10 BP 121/71 08/28/23 20:10 Pulse Ox 93 08/28/23 20:10 O2 Del Method Room Air 08/28/23 20:10 Data NPU Micro: Microbiology 08/27/23 03:40 Urine Culture - Final Urine,Clean Catch Microbiology 08/27/23 03:40 Urine,Clean Catch Urine Culture - Final A&P Assessment and plan (1) Acute cystitis: (2) Methamphetamine use disorder, severe: (3) Psychotic disorder: Plan This is a 47-year-old white female with some previous history of mental health treatment that is unclear with possible sexually transmitted disease noted at the outside hospital as well as paranoia and some confusion with limited ability to function as an accurate historian transferred to the hospital reportedly with a guardian supporting the transfer. 1. Continue current medications. Started Invega 6 mg p.o. daily. Patient on forced medication protocol with agreement by guardian but has been taking medication without difficulty past few days. We will consider long-acting injectable with guardian. 2. Continue every 15 minute checks for safety. 3. Encourage individual, group and any therapy. 4. Encourage sober living treatment after discharge at the highest level of care to which she is willing to commit. 5. Obtain collateral information including from the guardian regarding past treatment and possible current medications. 6. Appreciate hospitalist consult with [employer] complaints. 7. Signed level 2. Involuntary Hold Information 96 Hour Hold: 96 Hour Involuntary Admission: No Attestations NPU Medical Necessity Statement*: Inpatient hospitalization is medically necessary and the clinically appropriate intervention at this time. We will monitor medications and make changes as indicated. Likely length of stay 3-6 days. Coding Level of Care Code Acute Code for g Fwd Diagnoses Acute cystitis N30.00 Methamphetamine use disorder, severe F15.20 Psychotic disorder F29
[2023-08-28 20:10] VITALS: BP 121/71; PULSE 104; RESP 16; TEMP 36.4; O2SAT 93
[2023-08-29 06:00] VITALS: BP 132/80; PULSE 88; RESP 16; O2SAT 93
[2023-08-29] MEDS: ciprofloxacin 500 mg Tablet PO ×2 (08:40→20:12)
[2023-08-29] MEDS: paliperidone ER 6 mg Tablet PO (08:40)
--- NOTE | 2023-08-29 10:45 | P.NPUPN_ITS ---
Subjective NPU Subjective: Patient presented today reporting that she is feeling okay. She is very hopeful that some kind of placement is under work sooner rather than later. She reports that she is open to what ever opportunities exist and even named a few that she knows of that were more like medical placements. She denied any side effects to the medication and we discussed that the long-acting injectable is supposed to be in stock tomorrow to initiate her Invega Sustenna. Mental Status Exam MSE Comments: This is an overweight versus obese white female in hospital scrubs with improving grooming or eye contact. She was lying in bed with less psychomotor agitation. Notable scar on her right lower leg from the medial aspect of her ankle up several inches. Slightly more cooperative with exam in mild distress. Speech was increased rate normal volume. Mood described as okay , affect congruent. Thought process linear. Thought content: Patient denied suicidal or homicidal ideation, there were no delusions reported but clear paranoia and persecutory delusions noted, she denied auditory or visual hallucinations but some concerns for perceptual disturbances exist. Attention and concentration were limited and memory was unreliable but none were formally tested. She is alert and oriented to person and place. Insight and judgment improving and impulse control is impaired. Vitals/I&O/Wt Last Vital Signs Temp 97.5 F L 08/28/23 20:10 Pulse 88 08/29/23 06:00 Resp 16 08/29/23 06:00 BP 132/80 08/29/23 06:00 Pulse Ox 93 08/29/23 06:00 O2 Del Method Room Air 08/29/23 06:00 Data NPU Micro: Microbiology 08/27/23 03:40 Urine Culture - Final Urine,Clean Catch Microbiology 08/27/23 03:40 Urine,Clean Catch Urine Culture - Final A&P Assessment and plan (1) Acute cystitis: (2) Methamphetamine use disorder, severe: (3) Psychotic disorder: Plan This is a 47-year-old white female with some previous history of mental health treatment that is unclear with possible sexually transmitted disease noted at the outside hospital as well as paranoia and some confusion with limited ability to function as an accurate historian transferred to the hospital reportedly with a guardian supporting the transfer. 1. Continue current medications. Started Invega 6 mg p.o. daily. Patient on forced medication protocol with agreement by guardian but has been taking medication without difficulty past few days. Plan for Invega Sustenna 234 mg IM to deltoid as it is a loading dose but stock and available till tomorrow. 2. Continue every 15 minute checks for safety. 3. Encourage individual, group and any therapy. 4. Encourage sober living treatment after discharge at the highest level of care to which she is willing to commit. 5. Obtain collateral information including from the guardian regarding past treatment and possible current medications. 6. 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 7. Level 2 has been signed and referrals sent Involuntary Hold Information 96 Hour Hold: 96 Hour Involuntary Admission: No Attestations NPU Medical Necessity Statement*: Inpatient hospitalization is medically necessary and the clinically appropriate intervention at this time. We will monitor medications and make changes as indicated. Likely length of stay 3-6 days. Coding Level of Care Code Acute Code for Chg Fwd Diagnoses Acute cystitis N30.00 Methamphetamine use disorder, severe F15.20 Psychotic disorder F29
[2023-08-29 12:03] LABS: HSV 1 IGG Type Specific AB 4.82 index; HSV 2 IGG Type Specific AB <0.90 index
[2023-08-29 14:00] VITALS: BP 126/78; PULSE 84; RESP 17; TEMP 36.9; O2SAT 96
[2023-08-29 14:56] LABS: Chlamydia Trachomatis RNA TMA NOT DETECTED (NOT DETECTED); Neisseria Gonorrhoeae RNA, TMA NOT DETECTED (NOT DETECTED); Trichomonas Vaginalis RNA DETECTED (NOT DETECTED)
[2023-08-29 19:53] VITALS: BP 110/61; PULSE 95; RESP 18; TEMP 37.3; O2SAT 94
[2023-08-30 06:00] VITALS: RESP 17
--- NOTE | 2023-08-30 10:08 | PM.PN ---
Subjective Subjective: Patient's urine specimen is positive for trichomonas vaginalis. Her UCx was positive for urogenital sandee. When seen today, she endorsed nausea, so Zofran was administered by the nurse. She states that she felt a little febrile, and her temp was 99.2F. She denies any chills, dizziness, light headedness, CP, palpitations, abdominal pain, vomiting, diarrhea, melena/hematochezia. She states that she is still having a little bit of discharge. Vitals/I&O/Wt Last Vital Signs Temp 99.2 F 08/29/23 19:53 Pulse 95 08/29/23 19:53 Resp 17 08/30/23 06:00 BP 110/61 08/29/23 19:53 Pulse Ox 94 08/29/23 19:53 O2 Del Method Room Air 08/29/23 19:53 Physical Exam Const: GENERAL APPEARANCE: cooperative and comfortable; not in distress and not combative ORIENTATION/CONSCIOUSNESS: Yes awake, Yes oriented to person, Yes oriented to place and Yes oriented to time HENMT: COMMON NORMALS: normocephalic, atraumatic, external ears normal and Normal external nose present HEAD & SCALP: normocephalic and atraumatic NOSE: Normal external nose present EXTERNAL EAR: Yes external ears normal MOUTH: Normal oral and palatal mucosa present THROAT: posterior oropharynx normal Eye: COMMON NORMALS: Equal, round and reactive pupils present and conjunctivae normal CONJUNCTIVA: Yes conjunctivae normal PUPIL: Yes Equal, round and reactive pupils present EOM: No EOM abnormal Neck/C-Spine: COMMON NORMALS: Thyroid normal GENERAL: Yes normal visual inspection and Yes trachea midline THYROID: Thyroid normal CAROTIDS: No bruit Lymph: LYMPHATIC: No lymphadenopathy Resp: COMMON NORMALS: clear to auscultation bilaterally AUSCULTATION: clear to auscultation bilaterally, no crackles, no rales, no rhonchi and no wheezes Cardio: COMMON NORMALS: regular rate, regular rhythm, S1 normal heart sound present and S2 normal heart sound present RATE: regular rate RHYTHM: regular rhythm HEART SOUNDS: S1 normal heart sound present, S2 normal heart sound present, no click, no gallops, no murmurs and no rubs BRUITS: carotid bruit PERIPHERAL PULSES: radial pulses present and dorsalis pedis present GI: COMMON NORMALS: Soft to palpation and No hepatosplenomegaly present PALPATION: Yes Soft to palpation, No Tenderness to palpation present (GI), No Guarding due to palpation present (GI), No Rigid due to palpation and Yes No hepatosplenomegaly present Extremity: GENERAL: No clubbing, No cyanosis and No edema Neuro: SENSORIUM/ORIENTATION: Yes oriented to person, Yes oriented to place and Yes oriented to time CRANIAL NERVES: Yes CN normal except as noted SPEECH: speech normal SENSORY EXAM: No sensory level loss detected MOTOR EXAM: 5/5 motor strength present throughout and Normal motor muscle tone present throughout Psych: COMMON NORMALS: speech normal APPEARANCE: Yes grossly normal and Yes unkempt ATTITUDE: Yes calm and Yes engaged ACTIVITY/MOTOR BEHAVIOR: Yes appropriate eye contact SPEECH: Yes normal speech MOOD & AFFECT: Yes euthymic mood Skin: COMMON NORMALS: no rashes or lesions noted GENERAL SKIN EXAM: no rashes or lesions noted A&P Assessment and plan (1) Acute cystitis: Qualifiers: Hematuria presence: without hematuria Qualified Code(s): N30.00 - Acute cystitis without hematuria (2) Methamphetamine use disorder, severe: (3) Psychotic disorder: (4) Trichomonas vaginalis (TV) infection: Plan Elidia Jameson is a 47 yo woman w/ paranoia and severe methamphetamine use d/o, who was admitted to the Neuropsych unit (NPU) on 08/18/2023 for her psychiatric symptoms. The hospital service was consulted for medical management of her genitourinary complaints and lab concerning for a UTI. Patient is also requesting STI testing. #Acute cystitis #Trichomonas Vaginalis Vaginitis: - Cipro BID x 5 days. - Start Metronidazole 500mg po BID for Trichomonas. HIV, Syphilis tests were negative. HSV-1 IgG was Positive. HSV-2 IgG was Negative. #Psychosis #Severe Methamphetamine use d/o -Management per Psychiatrist Thank you for this consult. We will continue to follow. Please call or page w/ any questions. Attestations Medical Necessity Statement*: Patient remains hospitalized for management of her psychiatric presentation. Coding Level of Care Code 86966 Diagnoses Acute cystitis without hematuria N30.00 Hematuria presence: without hematuria Methamphetamine use disorder, severe F15.20 Psychotic disorder F29 Trichomonas vaginalis (TV) infection A59.01
[2023-08-30] MEDS: ciprofloxacin 500 mg Tablet PO ×2 (11:03→20:31)
[2023-08-30] MEDS: paliperidone ER 6 mg Tablet PO (11:03)
[2023-08-30] MEDS: metroNIDAZOLE 500 MG Tablet PO ×2 (11:03→17:57)
--- NOTE | 2023-08-30 13:47 | W.PM.NPUPNS ---
Subjective NPU Subjective: Patient presented today reporting that may be the medication is not sitting well with her and that she should have something like Lexapro that she reports helped her before. She was at times appearing as if she had an upset stomach per staff once she heard that she might be getting the long-acting injectable. We discussed the fact that she had not had any complaints of the medication until plan for the shot was introduced and that there will be no new aspect of the medication other than it is given monthly. After discussion of the risks, benefits and alternatives of the Invega Sustenna she understood and agreed to proceed as is documented in this note. Mental Status Exam MSE Comments: This is an overweight versus obese white female in hospital scrubs with improving grooming or eye contact. She was lying in bed with less psychomotor agitation. Notable scar on her right lower leg from the medial aspect of her ankle up several inches. Slightly more cooperative with exam in mild distress. Speech was increased rate normal volume. Mood described as okay , affect congruent. Thought process linear. Thought content: Patient denied suicidal or homicidal ideation, there were no delusions reported but clear paranoia and persecutory delusions noted, she denied auditory or visual hallucinations but some concerns for perceptual disturbances exist. Attention and concentration were limited and memory was unreliable but none were formally tested. She is alert and oriented to person and place. Insight and judgment improving and impulse control is impaired. Vitals/I&O/Wt Last Vital Signs Temp 99.2 F 08/29/23 19:53 Pulse 95 08/29/23 19:53 Resp 17 08/30/23 06:00 BP 110/61 08/29/23 19:53 Pulse Ox 94 08/29/23 19:53 O2 Del Method Room Air 08/29/23 19:53 A&P Assessment and plan (1) Acute cystitis: Qualifiers: Hematuria presence: without hematuria Qualified Code(s): N30.00 - Acute cystitis without hematuria (2) Methamphetamine use disorder, severe: (3) Psychotic disorder: Plan This is a 47-year-old white female with some previous history of mental health treatment that is unclear with possible sexually transmitted disease noted at the outside hospital as well as paranoia and some confusion with limited ability to function as an accurate historian transferred to the hospital reportedly with a guardian supporting the transfer. 1. Continue current medications. Started Invega 6 mg p.o. daily. Patient on forced medication protocol with agreement by guardian but has been taking medication without difficulty past few days. Initiate Invega Sustenna 234 mg IM to deltoid as it is a loading dose. 2. Continue every 15 minute checks for safety. 3. Encourage individual, group and any therapy. 4. Encourage sober living treatment after discharge at the highest level of care to which she is willing to commit. 5. Obtain collateral information including from the guardian regarding past treatment and possible current medications. 6. Appreciate hospitalist consult with COUNSELING PSYCHOLOGIST complaints. 7. Level 2 has been signed and referrals sent and we may have a facility prepared to receive her Involuntary Hold Information 96 Hour Hold: 96 Hour Involuntary Admission: No Attestations NPU Medical Necessity Statement*: Inpatient hospitalization is medically necessary and the clinically appropriate intervention at this time. We will monitor medications and make changes as indicated. Likely length of stay 3- 5 days. Coding Level of Care Code Acute Code for Chg Fwd Diagnoses Acute cystitis without hematuria N30.00 Hematuria presence: without hematuria Methamphetamine use disorder, severe F15.20 Psychotic disorder F29
[2023-08-30 14:00] VITALS: BP 107/66; PULSE 93; RESP 17; TEMP 37; O2SAT 96
[2023-08-30] MEDS: paliperidone palmitate 234 mg Syringe IM (15:45)
--- NOTE | 2023-08-30 15:54 | PC.NURSE ---
administered Invega 234mg/1.5mL to patient to right deltoid. Patient tolerated well. Lot: [id number] Exp: 01/2025
[2023-08-30] MEDS: hyDROXYzine 25 mg Capsule 50 MG PO (16:20)
[2023-08-30] MEDS: nicotine 4 mg lozenge MUCOUS MEM (16:25)
[2023-08-30] MEDS: ibuprofen 600 mg Tablet PO (16:28)
[2023-08-30 20:29] VITALS: RESP 17
[2023-08-30] MEDS: ondansetron 4 MG Tablet PO (20:31)
--- NOTE | 2023-08-30 21:19 | PC.NURSE ---
IN BED RESTING AROUSES TO VOICE, CO/O NAUSEA, ZOFRAN 4 MG GIVEN ORDERED. PT CONTINUES ANTIBIOTIC THERAPY FOR TRICHOMONAS. PT DENIES SI/HI AND AVH AT THIS TIME. RATES ANXIETY 6/10 AND DEPRESSION 5/10. PT IS WITHDRAWN AND ISOLATES TO ROOM. ALL QUESTIONS ANSWERED AND SUPPORT VOICED.
[2023-08-31 06:00] VITALS: RESP 16
--- NOTE | 2023-08-31 06:46 | PC.NURSE ---
Unable to obtain patients vitals due to patient sleeping. RR obtained.
[2023-08-31] MEDS: metroNIDAZOLE 500 MG Tablet PO ×2 (08:30→18:24)
[2023-08-31] MEDS: ciprofloxacin 500 mg Tablet PO ×2 (08:30→20:40)
[2023-08-31] MEDS: paliperidone ER 6 mg Tablet PO (08:30)
--- NOTE | 2023-08-31 08:34 | W.PM.NPUPNS ---
Subjective NPU Subjective: Patient presented today continue to have frustration about discharge. We continue to discuss the fact that her getting set up with Medicaid will assist her in the process her guardian is trying to explore and that resistance that this would probably lead to a longer stay. This made her very upset but we discussed the fact that Dr. Heller will be here tomorrow and that she could discuss these issues with him and that he would have independent thoughts about where we go from here and he will have records to review what we have been doing. Mental Status Exam MSE Comments: This is an overweight versus obese white female in hospital scrubs with improving grooming or eye contact. She was lying in bed with less psychomotor agitation. Notable scar on her right lower leg from the medial aspect of her ankle up several inches. Slightly more cooperative with exam in mild to moderate distress. Speech was increased rate normal volume. Mood described as okay, but I want to go, affect congruent. Thought process linear. Thought content: Patient denied suicidal or homicidal ideation, there were no delusions reported but clear paranoia and persecutory delusions noted, she denied auditory or visual hallucinations but some concerns for perceptual disturbances exist. Attention and concentration were limited and memory was unreliable but none were formally tested. She is alert and oriented to person and place. Insight and judgment improving and impulse control is impaired. Vitals/I&O/Wt Last Vital Signs Temp 98.6 F 08/30/23 14:00 Pulse 93 08/30/23 14:00 Resp 16 08/31/23 06:00 BP 107/66 08/30/23 14:00 Pulse Ox 96 08/30/23 14:00 O2 Del Method Room Air 08/29/23 19:53 A&P Assessment and plan (1) Acute cystitis: Qualifiers: Hematuria presence: without hematuria Qualified Code(s): N30.00 - Acute cystitis without hematuria (2) Methamphetamine use disorder, severe: (3) Psychotic disorder: Plan This is a 47-year-old white female with some previous history of mental health treatment that is unclear with possible sexually transmitted disease noted at the outside hospital as well as paranoia and some confusion with limited ability to function as an accurate historian transferred to the hospital reportedly with a guardian supporting the transfer. 1. Continue current medications. Started Invega 6 mg p.o. daily. Patient on forced medication protocol with agreement by guardian but has been taking medication without difficulty past few days. Initiate Invega Sustenna 234 mg IM to deltoid as it is a loading dose. 2. Continue every 15 minute checks for safety. 3. Encourage individual, group and any therapy. 4. Encourage sober living treatment after discharge at the highest level of care to which she is willing to commit. 5. Obtain collateral information including from the guardian regarding past treatment and possible current medications. 6. 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 7. Level 2 has been signed and referrals sent and we may have a facility prepared to receive her Involuntary Hold Information 96 Hour Hold: 96 Hour Involuntary Admission: No Attestations NPU Medical Necessity Statement*: Inpatient hospitalization is medically necessary and the clinically appropriate intervention at this time. We will monitor medications and make changes as indicated. Likely length of stay 3- 5 days. Coding Level of Care Code Acute Code for Chg Fwd Diagnoses Acute cystitis without hematuria N30.00 Hematuria presence: without hematuria Methamphetamine use disorder, severe F15.20 Psychotic disorder F29
[2023-08-31 14:00] VITALS: BP 121/75; PULSE 122; RESP 14; TEMP 36.9; O2SAT 97
[2023-08-31 20:35] VITALS: BP 113/70; PULSE 100; RESP 18; TEMP 37.1; O2SAT 95
--- NOTE | 2023-08-31 20:47 | PC.NURSE ---
PT IN BED SLEEPING, BECAME AGITATED AND BEGAN CUSSING THIS RN DUE TO BEING MAD SHE HAD TO COME TO THE NURSES STATION TO GET MEDICATIONS. PT WAS EDUCATED THAT HER ID BAND HAD TO BE SCANNED BEFORE RECEIVING MEDICATIONS. PT BECAME ANGRY AND UNCOOPERATIVE BUT PT DID TAKE HER CIPRO/ANTIBIOTIC. PT IS WITHDRAWN AND ISOLATES TO ROOM AND SLEEPS CONSTANTLY. PT DENIES SI/HI AND AVH AT THIS TIME. DENIES PAIN. RATES ANXIETY 6/10 AND DEPRESSION 4/10. ALL QUESTIONS ANSWERED AND SUPPORT WAS VOICED.
[2023-09-01 06:00] VITALS: RESP 16
[2023-09-01] MEDS: paliperidone ER 6 mg Tablet PO (09:06)
[2023-09-01] MEDS: ciprofloxacin 500 mg Tablet PO ×2 (09:06→20:03)
[2023-09-01] MEDS: metroNIDAZOLE 500 MG Tablet PO ×2 (09:06→18:00)
[2023-09-01] MEDS: ondansetron 4 MG Tablet PO ×2 (11:54→20:03)
[2023-09-01] MEDS: hyDROXYzine 25 mg Capsule 50 MG PO (11:58)
[2023-09-01 13:32] VITALS: BP 121/83; PULSE 105; RESP 16; TEMP 36.6; O2SAT 96
--- NOTE | 2023-09-01 17:33 | W.PM.NPUPNS ---
Subjective NPU Subjective: Patient is a 47-year-old female admitted with a history of methamphetamine use and a history of psychosis currently on Invega 6 mg daily. Patient had reported that she was feeling better. She states that she needed to go someplace in [place] and was hopeful that she would not be homeless again. She stated having been previously diagnosed with bipolar disorder. She had reported that she understood why she needed to take the medication as she was informed that taking the antipsychotic may protect her from significant decline if she were to use methamphetamine again as the methamphetamine had a tendency to exacerbate her psychotic symptoms and particularly her paranoia. She remains isolative on the milieu and continue to struggle with completion of activities of daily living without prompting. Mental Status Exam MSE Comments: This is an overweight versus obese white female in hospital scrubs with improving grooming or eye contact. She was lying in bed with less psychomotor agitation. Notable scar on her right lower leg from the medial aspect of her ankle up several inches. She was minimally cooperative with exam in mild to moderate distress. Speech was decreased in rate, rhythm and volume. Mood described as allright. Her affect remained blunted. Thought process was linear. Thought content: Patient denied suicidal or homicidal ideation, there were no delusions reported but some evidence of paranoia. She denied auditory or visual hallucinations and did not appear to be responding to internal stimuli. Her attention and concentration were limited and memory was unreliable but none were formally tested. She is alert and oriented to person and place. Insight and judgment was improving and impulse control is impaired. Vitals/I&O/Wt Last Vital Signs Temp 98 F 09/01/23 13:32 Pulse 105 H 09/01/23 13:32 Resp 16 09/01/23 13:32 BP 121/83 09/01/23 13:32 Pulse Ox 96 09/01/23 13:32 O2 Del Method Room Air 09/01/23 13:32 A&P Assessment and plan (1) Acute cystitis: Qualifiers: Hematuria presence: without hematuria Qualified Code(s): N30.00 - Acute cystitis without hematuria (2) Methamphetamine use disorder, severe: (3) Psychotic disorder: Plan This is a 47-year-old white female with some previous history of mental health treatment that is unclear with possible sexually transmitted disease noted at the outside hospital as well as paranoia and some confusion with limited ability to function as an accurate historian transferred to the hospital reportedly with a guardian supporting the transfer. 1. Continue current medications. Continue Invega 6 mg p.o. daily. Patient on forced medication protocol with agreement by guardian but has been taking medication without difficulty past few days. Initiate Invega Sustenna 234 mg IM to deltoid as it is a loading dose. 2. Continue every 15 minute checks for safety. 3. Encourage individual, group and any therapy. 4. Encourage sober living treatment after discharge at the highest level of care to which she is willing to commit. 5. Obtain collateral information including from the guardian regarding past treatment and possible current medications. 6. Appreciate hospitalist consult with COMMUNICATIONS BILLING ANALYST complaints. 7. Level 2 has been signed and referrals sent and we may have a facility prepared to receive her Involuntary Hold Information 96 Hour Hold: 96 Hour Involuntary Admission: No Attestations NPU Medical Necessity Statement*: Inpatient hospitalization is medically necessary and the clinically appropriate intervention at this time. We will monitor medications and make changes as indicated. Her likely length of stay is 3- 5 days. Coding Level of Care Code Acute Code for Chg Fwd Diagnoses Acute cystitis without hematuria N30.00 Hematuria presence: without hematuria Methamphetamine use disorder, severe F15.20 Psychotic disorder F29
[2023-09-01] MEDS: nicotine 2 mg Gum BUCCAL (18:04)
--- NOTE | 2023-09-01 20:03 | PC.NURSE ---
IN ROOM RESTING AROUSES TO VOICE. PT DENIES PAIN, SI/HI AND AVH AT THIS TIME. RATES DEPRESSION / AND ANXIETY /,DECLINES ANTI-ANXIETY MEDICATIONS AT THIS TIME. PT DOES REQUEST ZOFRAN 4 MG WITH CIPRO ADMINISTRATION AT BEDTIME. PT ASSURED THAT THIS RN WOULD GET IT FOR HER. PT IS NOTED TO HAVE A FLAT AFFECT, ISOLATES AND WITHDRAWS TO ROOM. ALL QUESTIONS ANSWERED AND SUPPORT VOICED.
--- NOTE | 2023-09-01 20:17 | PC.NURSE ---
asked pt multiple times to obtain vital signs. pt refused.
[2023-09-02 06:00] VITALS: BP 124/81; PULSE 80; RESP 14; TEMP 37; O2SAT 96
[2023-09-02] MEDS: ondansetron 4 MG Tablet PO (08:27)
[2023-09-02] MEDS: ciprofloxacin 500 mg Tablet PO (08:27)
[2023-09-02] MEDS: metroNIDAZOLE 500 MG Tablet PO ×2 (08:27→17:44)
[2023-09-02] MEDS: paliperidone ER 6 mg Tablet PO (08:27)
[2023-09-02 10:11] LABS: HCG Qualitative Urine. Negative (Negative)
--- NOTE | 2023-09-02 11:26 | P.PN_ITS ---
Subjective Subjective: Patient was seen this morning. She endorses slight greenish-brown discharge. She denies any fever, chills, abdominal pain, nausea, vomiting, diarrhea, SOB, dizziness, lightheadedness, palpitations. Vitals/I&O/Wt Last Vital Signs Temp 98.6 F 09/02/23 06:00 Pulse 80 09/02/23 06:00 Resp 14 09/02/23 06:00 BP 124/81 09/02/23 06:00 Pulse Ox 96 09/02/23 06:00 O2 Del Method Room Air 09/02/23 06:00 Physical Exam Const: GENERAL APPEARANCE: cooperative and comfortable; not in distress and not combative ORIENTATION/CONSCIOUSNESS: Yes awake, Yes oriented to person, Yes oriented to place and Yes oriented to time HENMT: COMMON NORMALS: normocephalic, atraumatic, external ears normal and Normal external nose present HEAD & SCALP: normocephalic and atraumatic NOSE: Normal external nose present EXTERNAL EAR: Yes external ears normal MOUTH: Normal oral and palatal mucosa present THROAT: posterior oropharynx normal Eye: COMMON NORMALS: Equal, round and reactive pupils present and conjunctivae normal CONJUNCTIVA: Yes conjunctivae normal PUPIL: Yes Equal, round and reactive pupils present EOM: No EOM abnormal Neck/C-Spine: COMMON NORMALS: Thyroid normal GENERAL: Yes normal visual inspection and Yes trachea midline THYROID: Thyroid normal CAROTIDS: No bruit Lymph: LYMPHATIC: No lymphadenopathy Resp: COMMON NORMALS: clear to auscultation bilaterally AUSCULTATION: clear to auscultation bilaterally, no crackles, no rales, no rhonchi and no wheezes Cardio: COMMON NORMALS: regular rate, regular rhythm, S1 normal heart sound present and S2 normal heart sound present RATE: regular rate RHYTHM: regular rhythm HEART SOUNDS: S1 normal heart sound present, S2 normal heart sound present, no click, no gallops, no murmurs and no rubs BRUITS: carotid bruit PERIPHERAL PULSES: radial pulses present and dorsalis pedis present GI: COMMON NORMALS: Soft to palpation and No hepatosplenomegaly present PALPATION: Yes Soft to palpation, No Tenderness to palpation present (GI), No Guarding due to palpation present (GI), No Rigid due to palpation and Yes No hepatosplenomegaly present Extremity: GENERAL: No clubbing, No cyanosis and No edema Neuro: SENSORIUM/ORIENTATION: Yes oriented to person, Yes oriented to place and Yes oriented to time CRANIAL NERVES: Yes CN normal except as noted SPEECH: speech normal SENSORY EXAM: No sensory level loss detected MOTOR EXAM: 5/5 motor strength present throughout and Normal motor muscle tone present throughout Psych: COMMON NORMALS: speech normal APPEARANCE: Yes grossly normal and Yes unkempt ATTITUDE: Yes calm and Yes engaged ACTIVITY/MOTOR BEHAVIOR: Yes appropriate eye contact SPEECH: Yes normal speech MOOD & AFFECT: Yes euthymic mood Skin: COMMON NORMALS: no rashes or lesions noted GENERAL SKIN EXAM: no rashes or lesions noted A&P Assessment and plan (1) Acute cystitis: Qualifiers: Hematuria presence: without hematuria Qualified Code(s): N30.00 - Acute cystitis without hematuria (2) Methamphetamine use disorder, severe: (3) Psychotic disorder: (4) Trichomonas vaginalis (TV) infection: Plan Elidia Jameson is a 47 yo woman w/ paranoia and severe methamphetamine use d/o, who was admitted to the Neuropsych unit (NPU) on 08/18/2023 for her psychiatric symptoms. The hospital service was consulted for medical management of her genitourinary complaints and lab concerning for a UTI. Patient is also requesting STI testing. #Acute cystitis #Trichomonas Vaginalis Vaginitis: - Cipro BID x 5 days completed on 09/01/2023. - Start Metronidazole 500mg po BID on 08/30/2023 x 7 days for Trichomonas. HIV, Syphilis tests were negative. HSV-1 IgG was Positive. HSV-2 IgG was Negative. Her urine test was negative. #Psychosis #Severe Methamphetamine use d/o -Management per Psychiatrist Thank you for this consult. We will continue to follow. Please call or page w/ any questions. Attestations Medical Necessity Statement*: Patient was remains hospitalized for her mental health disorders being managed by a psychiatrist. Coding Level of Care Code Acute Code for [facility] Fwd Diagnoses Acute cystitis without hematuria N30.00 Hematuria presence: without hematuria Methamphetamine use disorder, severe F15.20 Psychotic disorder F29 Trichomonas vaginalis (TV) infection A59.01
--- NOTE | 2023-09-02 13:48 | P.NPUPN_ITS ---
Subjective NPU Subjective: Patient is a 47-year-old female admitted with a history of methamphetamine use and a history of psychosis currently on Invega 6 mg daily. Patient had endorsed some continued depression. She reports that she was no longer feeling as suspicious. She reported that she continued to feel somewhat down. She had remained isolative on the milieu. She reported a lack of motivation. She had minimized the significance of the use of methamphetamine today although she stated that her methamphetamine use had caused her to be unable to take care of herself. She stated that she was agreeable to taking medications to prevent emerging psychosis. She continued to isolate herself on the milieu. Mental Status Exam MSE Comments: This is an overweight versus obese white female in hospital scrubs with improving grooming or eye contact. She was lying in bed with active psychomotor retardation. Notable scar on her right lower leg from the medial aspect of her ankle up several inches. She was minimally cooperative with exam in mild to moderate distress. Speech was decreased in rate, rhythm and volume. Mood described as okay. Her affect remained flat. Thought process was linear. Thought content: Patient denied suicidal or homicidal ideation, there were no delusions reported but some evidence of paranoia. She denied auditory or visual hallucinations and did not appear to be responding to internal stimuli. Her attention and concentration were limited and memory was unreliable but none were formally tested. She is alert and oriented to person and place. Insight and judgment was improving and impulse control is impaired. Vitals/I&O/Wt Last Vital Signs Temp 98.6 F 09/02/23 06:00 Pulse 80 09/02/23 06:00 Resp 14 09/02/23 06:00 BP 124/81 09/02/23 06:00 Pulse Ox 96 09/02/23 06:00 O2 Del Method Room Air 09/02/23 06:00 A&P Assessment and plan (1) Acute cystitis: Qualifiers: Hematuria presence: without hematuria Qualified Code(s): N30.00 - Acute cystitis without hematuria (2) Methamphetamine use disorder, severe: (3) Psychotic disorder: (4) Trichomonas vaginalis (TV) infection: Plan his is a 47-year-old white female with some previous history of mental health treatment that is unclear with possible sexually transmitted disease noted at the outside hospital as well as paranoia and some confusion with limited ability to function as an accurate historian transferred to the hospital reportedly with a guardian supporting the transfer. 1. Continue current medications. Continue Invega 6 mg p.o. daily. Patient on forced medication protocol with agreement by guardian but has been taking medication without difficulty past few days. Initiate Invega Sustenna 234 mg IM to deltoid as it is a loading dose. 2. Continue every 15 minute checks for safety. 3. Encourage individual, group and any therapy. 4. Encourage sober living treatment after discharge at the highest level of care to which she is willing to commit. 5. Obtain collateral information including from the guardian regarding past treatment and possible current medications. 6. Appreciate hospitalist consult with MUSIC PUBLISHER complaints. 7. Level 2 has been signed and referrals sent and we may have a facility prepared to receive her. 8. Add Lexapro 10mg daily to target anxiety. Involuntary Hold Information 96 Hour Hold: 96 Hour Involuntary Admission: No Attestations NPU Medical Necessity Statement*: Inpatient hospitalization is medically necessary and the clinically appropriate intervention at this time. We will monitor medications and make changes as indicated. Her likely length of stay is 3- 5 days. Coding Level of Care Code Acute Code for [facility] Fwd Diagnoses Acute cystitis without hematuria N30.00 Hematuria presence: without hematuria Methamphetamine use disorder, severe F15.20 Psychotic disorder F29 Trichomonas vaginalis (TV) infection A59.01
[2023-09-02 14:00] VITALS: BP 94/57; PULSE 84; RESP 18; TEMP 37.2; O2SAT 94
[2023-09-02] MEDS: escitalopram 10 mg Tablet PO (14:04)
[2023-09-02] MEDS: hyDROXYzine 25 mg Capsule 50 MG PO (17:44)
[2023-09-02 19:28] VITALS: BP 130/78; PULSE 81; RESP 15; TEMP 37.1; O2SAT 95
[2023-09-03 06:00] VITALS: BP 122/74; PULSE 88; RESP 15; TEMP 36.9; O2SAT 87
[2023-09-03] MEDS: metroNIDAZOLE 500 MG Tablet PO ×2 (08:30→17:39)
[2023-09-03] MEDS: paliperidone ER 6 mg Tablet PO (08:30)
[2023-09-03] MEDS: escitalopram 10 mg Tablet PO (08:30)
[2023-09-03 14:00] VITALS: BP 103/68; PULSE 79; RESP 20; TEMP 37.2; O2SAT 96
--- NOTE | 2023-09-03 17:34 | W.PM.NPUPNS ---
Subjective NPU Subjective: Patient is a 47-year-old female admitted with a history of methamphetamine use and a history of psychosis currently on Invega 6 mg daily. The patient remains disinterested and minimally engaged on the milieu. She had been somewhat evasive and was hesitant about wanting to be placed in another facility. She continued to show a lack of motivation and required significant prompting for completion of activities of daily living. She had continued to endorse depressed mood. She had acknowledged the use of methamphetamines and stated that she had become depressed when withdrawing off of this drug before in the past. Mental Status Exam MSE Comments: This is an overweight versus obese white female in hospital scrubs with poor grooming and fleeting eye contact. She was lying in bed with active psychomotor retardation. Notable scar on her right lower leg from the medial aspect of her ankle up several inches. She was minimally cooperative with exam in mild to moderate distress. Speech was decreased in rate, rhythm and volume. Mood described as okay. Her affect remained flat. Thought process was linear. Thought content: Patient denied suicidal or homicidal ideation, there were no delusions reported but some evidence of paranoia. She denied auditory or visual hallucinations and did not appear to be responding to internal stimuli. Her attention and concentration were limited and memory was unreliable but none were formally tested. She is alert and oriented to person and place. Insight and judgment was improving and impulse control is impaired. Vitals/I&O/Wt Last Vital Signs Temp 98.9 F 09/03/23 14:00 Pulse 79 09/03/23 14:00 Resp 20 H 09/03/23 14:00 BP 103/68 09/03/23 14:00 Pulse Ox 96 09/03/23 14:00 O2 Del Method Room Air 09/03/23 14:00 A&P Assessment and plan (1) Acute cystitis: Qualifiers: Hematuria presence: without hematuria Qualified Code(s): N30.00 - Acute cystitis without hematuria (2) Methamphetamine use disorder, severe: (3) Psychotic disorder: (4) Trichomonas vaginalis (TV) infection: Plan his is a 47-year-old white female with some previous history of mental health treatment that is unclear with possible sexually transmitted disease noted at the outside hospital as well as paranoia and some confusion with limited ability to function as an accurate historian transferred to the hospital reportedly with a guardian supporting the transfer. 1. Continue current medications. Continue Invega 6 mg p.o. daily. Patient on forced medication protocol with agreement by guardian but has been taking medication without difficulty past few days. INvega 234mg IM given on 08/30/23, with 156mg due on 09/05/23 to deltoid as it is a loading dose. 2. Continue every 15 minute checks for safety. 3. Encourage individual, group and any therapy. 4. Encourage sober living treatment after discharge at the highest level of care to which she is willing to commit. 5. Obtain collateral information including from the guardian regarding past treatment and possible current medications. 6. Appreciate hospitalist consult with HEALTHCARE ANALYST complaints. 7. Level 2 has been signed and referrals sent and we may have a facility prepared to receive her. 8. Continue Lexapro 10mg daily to target anxiety. Involuntary Hold Information 96 Hour Hold: 96 Hour Involuntary Admission: No Attestations NPU Medical Necessity Statement*: Inpatient hospitalization is medically necessary and the clinically appropriate intervention at this time. We will monitor medications and make changes as indicated. Her likely length of stay is 3- 5 days. Coding Level of Care Code Acute Code for [facility] Fwd Diagnoses Acute cystitis without hematuria N30.00 Hematuria presence: without hematuria Methamphetamine use disorder, severe F15.20 Psychotic disorder F29 Trichomonas vaginalis (TV) infection A59.01
[2023-09-03 19:48] VITALS: BP 120/74; PULSE 88; RESP 16; O2SAT 95
[2023-09-04 06:00] VITALS: RESP 16
[2023-09-04] MEDS: metroNIDAZOLE 500 MG Tablet PO ×2 (08:34→17:35)
[2023-09-04] MEDS: paliperidone ER 6 mg Tablet PO (08:34)
[2023-09-04] MEDS: escitalopram 10 mg Tablet PO (08:34)
[2023-09-04 14:00] VITALS: BP 112/68; PULSE 89; RESP 14; TEMP 36.8; O2SAT 95
--- NOTE | 2023-09-04 15:43 | W.PM.NPUPNS ---
Subjective NPU Subjective: Patient is a 47-year-old female admitted with a history of methamphetamine use and a history of psychosis currently on Invega 6 mg daily. She denied any psychotic symptoms at this time. She had reported a past history of depression. She had stated that she would like to consider going to a [facility]. She had reported a history of opiate addiction and stated that Suboxone has been helpful for her in the past. She reported no feelings of hopelessness. She had reported feeling frequently fatigued and tired. She had reported chronic pain issues. She had continued to isolate herself on the milieu. She had reported no side effects from her antidepressant. Mental Status Exam MSE Comments: This is an overweight versus obese white female in hospital scrubs with poor grooming and fleeting eye contact. She was lying in bed with active psychomotor retardation. Notable scar on her right lower leg from the medial aspect of her ankle up several inches. She was cooperative with exam in mild distress. Speech was normal in rate, rhythm and prosody. Mood described as okay. Her affect remained flat. Thought process was linear. Thought content: Patient denied suicidal or homicidal ideation, there were no delusions reported but some evidence of paranoia. She denied auditory or visual hallucinations and did not appear to be responding to internal stimuli. Her attention and concentration appeared fair today. She is alert and oriented to person and place. Insight and judgment was improving and impulse control is impaired. Vitals/I&O/Wt Last Vital Signs Temp 98.9 F 09/03/23 14:00 Pulse 88 09/03/23 19:48 Resp 16 09/04/23 06:00 BP 120/74 09/03/23 19:48 Pulse Ox 95 09/03/23 19:48 O2 Del Method Room Air 09/03/23 19:48 A&P Assessment and plan (1) Acute cystitis: Qualifiers: Hematuria presence: without hematuria Qualified Code(s): N30.00 - Acute cystitis without hematuria (2) Methamphetamine use disorder, severe: (3) Psychotic disorder: (4) Trichomonas vaginalis (TV) infection: Plan his is a 47-year-old white female with some previous history of mental health treatment that is unclear with possible sexually transmitted disease noted at the outside hospital as well as paranoia and some confusion with limited ability to function as an accurate historian transferred to the hospital reportedly with a guardian supporting the transfer. 1. Continue current medications. Continue Invega 6 mg p.o. daily. Patient on forced medication protocol with agreement by guardian but has been taking medication without difficulty past few days. INvega 234mg IM given on 08/30/23, with 156mg due on 09/05/23 to deltoid as it is a loading dose. 2. Continue every 15 minute checks for safety. 3. Encourage individual, group and any therapy. 4. Encourage sober living treatment after discharge at the highest level of care to which she is willing to commit. 5. Obtain collateral information including from the guardian regarding past treatment and possible current medications. 6. Appreciate hospitalist consult with FORENSIC SCIENCE TECHNICIAN complaints. 7. Level 2 has been signed and referrals sent and we may have a facility prepared to receive her. 8. Continue Lexapro 10mg daily to target anxiety. Involuntary Hold Information 96 Hour Hold: 96 Hour Involuntary Admission: No Attestations NPU Medical Necessity Statement*: Inpatient hospitalization is medically necessary and the clinically appropriate intervention at this time. We will monitor medications and make changes as indicated. Her likely length of stay is 3- 5 days. Coding Level of Care Code Acute Code for [facility] Fwd Diagnoses Acute cystitis without hematuria N30.00 Hematuria presence: without hematuria Methamphetamine use disorder, severe F15.20 Psychotic disorder F29 Trichomonas vaginalis (TV) infection A59.01
[2023-09-04 19:50] VITALS: BP 108/70; PULSE 91; RESP 16; TEMP 36.6; O2SAT 97
[2023-09-05 06:00] VITALS: BP 138/85; PULSE 86; RESP 15; O2SAT 96
[2023-09-05] MEDS: metroNIDAZOLE 500 MG Tablet PO ×2 (08:43→17:10)
[2023-09-05] MEDS: escitalopram 10 mg Tablet PO (08:43)
[2023-09-05] MEDS: paliperidone palmitate 156 mg Syringe IM (13:02)
[2023-09-05 14:00] VITALS: BP 113/74; PULSE 84; RESP 18; TEMP 37.3; O2SAT 96
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
[2023-09-05] MEDS: hyDROXYzine 25 mg Capsule 50 MG PO (17:10)
[2023-09-05] MEDS: buprenorphine-naloxone 4-1 mg Film 1 EACH SUBLINGUAL (17:10)
--- NOTE | 2023-09-05 20:05 | PC.NURSE ---
IN BED RESTING AROUSES TO VOICE. PT DENIES PAIN, SI/HI AND AVH AT THIS TIME. RATES DEPRESSION/10 AND ANXIETY /. DECLINES ANY PHARMACEUTICAL INTERVENTION AT THIS TIME. PT REPORTS SHE HAS ALREADY TAKEN SUBOXONE AND VISTARIL AND DOES NOT WANT ANYTHING TO MESS THAT UP. PT EDUCATED THAT IF SHE WAS STILL HAVING ANXIETY IN AN HOUR OR SO TAKING ANTI ANXIETY MEDICATIONS WOULD BE FINE AND NOT INTERFERE WITH HER OTHER MEDICATIONS. PT SAID OK I WILL LET YOU KNOW. PT STATES SHE IS DISCHARGING [facility]OMORROW [facility] IN [facility]ST AND IS EXCITED ABOUT RETURNING. ALL QUESTIONS ANSWERED AND SUPPORT VOICED.
[2023-09-05 20:47] VITALS: BP 107/65; PULSE 78; RESP 18; TEMP 36.4; O2SAT 94
[2023-09-06 06:00] VITALS: RESP 16
[2023-09-06] MEDS: buprenorphine-naloxone 4-1 mg Film 1 EACH SUBLINGUAL ×2 (08:11→17:45)
[2023-09-06] MEDS: escitalopram 10 mg Tablet 20 MG PO (08:11)
[2023-09-06 14:00] VITALS: BP 103/60; PULSE 70; RESP 14; TEMP 37.1; O2SAT 95
[2023-09-06] MEDS: nicotine 2 mg Gum BUCCAL (14:02)
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
[2023-09-06] MEDS: ibuprofen 600 mg Tablet PO (19:35)
[2023-09-06 19:53] VITALS: BP 135/68; PULSE 81; RESP 17; TEMP 36.8; O2SAT 93
[2023-09-07 06:00] VITALS: BP 92/58; PULSE 82; RESP 16; TEMP 36.9; O2SAT 97
[2023-09-07] MEDS: escitalopram 10 mg Tablet 20 MG PO (08:02)
[2023-09-07] MEDS: buprenorphine-naloxone 4-1 mg Film 1 EACH SUBLINGUAL (08:02)
[2023-09-07] MEDS: ibuprofen 600 mg Tablet PO (09:31)
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
[2023-09-07 13:23] VITALS: BP 92/58; PULSE 82; RESP 16; TEMP 36.9; O2SAT 97
[2023-09-07 13:47] VITALS: BP 82/51; PULSE 78; RESP 16; TEMP 37; O2SAT 95
--- NOTE | 2023-09-07 13:56 | DCPLANNER ---
IMM completed 09/07/23 @ [id number]. Pt was given a copy of her rights and she stated she understood her rights.
== END 2023-09-07 17:08 | disposition home or self-care (01) | DRG 881 ==
PROVIDERS: Internal Medicine; Admitting Provider Psychiatry & Neurology Psychiatry; Visit Provider Psychiatry & Neurology Psychiatry
DX: F32.A Depression, unspecified (principal); F15.20 Other stimulant dependence, uncomplicated; F11.20 Opioid dependence, uncomplicated; N30.00 Acute cystitis without hematuria; F29 Unspecified psychosis not due to a substance or known physiological condition; F17.210 Nicotine dependence, cigarettes, uncomplicated; B96.89 Other specified bacterial agents as the cause of diseases classified elsewhere; A59.01 Trichomonal vulvovaginitis
CPT/HCPCS: 36415; 81001; 81025; 86592; 86695; 86696; 87086; 87491; 87591; 87806; 96372; 97150; 97165; J0573; J1200; J1630; J2060; Q0162